=== PATIENT | male | born 1940 | race Caucasian/White ===

== ENCOUNTER 2017-08-11 00:38 | Outpatient (CLI) | payer SELFPAY | END 2017-08-11 23:59 | disposition home or self-care (01) | LOC: HW VAS 00:38 | DX: Z13.6 Encounter for screening for cardiovascular disorders (principal) ==

== ENCOUNTER 2021-10-24 10:02 | Outpatient (CLI) | payer SELFPAY | END 2021-10-24 23:59 | disposition home or self-care (01) | LOC: VAS 10:02 | DX: Z13.6 Encounter for screening for cardiovascular disorders (principal) ==